=== PATIENT | female | born 1950 | race Caucasian/White ===

== ENCOUNTER 2017-01-09 15:19 | Emergency (ER) | payer MEDICARE ==
[2017-01-09 16:21] VITALS: BP 180/92; PULSE 99; O2SAT 98
--- NOTE | 2017-01-09 16:57 | ERPHSYRPT ---
- History of Present Illness Time Seen by Provider: 01/09/17 16:53 Source: patient Patient Subjective Stated Complaint: pt states she has ahd a headche for 3 days. pt c/o nausea. Triage Nursing Assessment: pt, pink, warm, dry. pt ambulated into ER without difficulty. pupils perrl. Physician History: The patient is a 66-year-old female who complains of a headache for 3 days with nausea. The headache began on the left side behind the eyeball and has progressed to a generalized headache. She has had similar headaches in the past. She states a "shot" has helped her in the past. Her past medical history is significant for diabetes, hypertension, high cholesterol, and GERD. Timing/Duration: day(s) (3) Quality: sharpness Head Pain Location: global Severity of Pain-Max: moderate Severity of Pain-Current: moderate Recent Head Trauma: occasional headaches Modifying Factors: Improves With: exposure to light Associated Symptoms: nausea/vomiting, sensitive to light Previous symptoms: same symptoms as today Allergies/Adverse Reactions: Penicillins Allergy (Verified 01/09/17 16:21) Home Medications: Aspirin 81 mg PO DAILY 02/04/15 [History] Insulin Detemir [Levemir] 36 unit SQ DAILY 02/04/15 [History] Linagliptin [Tradjenta] 5 mg PO DAILY 02/04/15 [History] PANTOPRAZOLE 40 mg Tablet [Protonix 40MG Tablet] 40 mg PO BID 02/04/15 [ History] Rosuvastatin Calcium [Crestor] 20 mg PO HS 02/04/15 [History] Topiramate [Topamax] 100 mg PO DAILY 02/04/15 [History] Amlodipine Besylate 5 mg [Norvasc 5 mg] 2.5 mg PO DAILY 01/09/17 [History] Clonazepam 0.5 mg [Klonopin 0.5 MG] 0.5 mg PO HS 01/09/17 [History] Exenatide [Byetta] 2 mg SQ UD 01/09/17 [History] Insulin Aspart [NovoLOG Insulin] 4 units SQ BREAKFAST 01/09/17 [History] Insulin Aspart [NovoLOG Insulin] 5 units SQ DINNER 01/09/17 [History] Insulin Aspart [NovoLOG Insulin] 6 units SQ LUNCH 01/09/17 [History] Linaclotide [Linzess] 290 mcg PO DAILY 01/09/17 [History] Sertraline HCl 200 mg PO DAILY 01/09/17 [History] Hx Tetanus, Diphtheria Vaccination/Date Given: Yes (up to date) Hx Influenza Vaccination/Date Given: Yes Hx Pneumococcal Vaccination/Date Given: Yes Immunizations Up to Date: Yes - Review of Systems Constitutional: No Fever, No Chills Eyes: Photophobia Ears, Nose, & Throat: No Symptoms Respiratory: No Cough, No Dyspnea Cardiac: No Chest Pain, No Edema, No Syncope Abdominal/Gastrointestinal: Nausea Genitourinary Symptoms: No Dysuria Musculoskeletal: No Back Pain, No Neck Pain Skin: No Rash Neurological: No Dizziness, No Focal Weakness, No Sensory Changes Psychological: No Symptoms Endocrine: No Symptoms Hematologic/Lymphatic: No Symptoms Immunological/Allergic: No Symptoms All Other Systems: Reviewed and Negative - Past Medical History Pertinent Past Medical History: Yes Neurological History: Migraines ENT History: No Pertinent History Cardiac History: Coronary Artery Disease, Hypertension Respiratory History: No Pertinent History Endocrine Medical History: Diabetes Type II Musculoskeletal History: Arthritis GI Medical History: Ulcer History: Renal Disease Psycho-Social History: No Pertinent History Female Reproductive Disorders: No Pertinent History Other Medical History: STENT PLACEMENT 12/31 - Past Surgical History Past Surgical History: Yes Neuro Surgical History: No Pertinent History Cardiac: Cardiac Catheterization, Cardiac Stent Respiratory: No Pertinent History Gastrointestinal: Appendectomy, Cholecystectomy, Hernia Repair Genitourinary: No Pertinent History Musculoskeletal: No Pertinent History Female Surgical History: Hysterectomy Other Surgical History: dialysis fistula - Social History Smoking Status: Never smoker Exposure to second hand smoke: No Drug Use: none Patient Lives Alone: No - Nursing Vital Signs Nursing Vital Signs: Initial Vital Signs Temperature 99.0 F Temperature Source Oral Pulse Rate 99 Respiratory Rate 20 Blood Pressure [Right Arm] 180/92 Pain Intensity 8 - Physical Exam General Appearance: moderate distress Eye Exam: photophobia Ears, Nose, Throat Exam: normal ENT inspection, moist mucous membranes Neck Exam: normal inspection, supple, full range of motion, No meningismus Respiratory Exam: normal breath sounds, lungs clear Cardiovascular Exam: regular rate/rhythm, normal heart sounds Gastrointestinal/Abdominal Exam: soft, No tenderness, No distention Back Exam: normal inspection, normal range of motion Extremity Exam: normal inspection Mental Status Exam: alert, oriented x 3, 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 Exam: normal speech, PERRL, No facial droop Coordination/Gait Exam: normal cerebellar function Motor/Sensory Exam: no motor deficit, no sensory deficit Skin Exam: normal color, warm, dry, No rash SpO2 Interpretation: normal SpO2: 98 Oxygen Delivery: Room Air - Progress Progress: improved Counseled pt/family regarding: diagnosis - Departure Time of Disposition: 17:00 Departure Disposition: Home Clinical Impression: Headache Condition: Stable Critical Care Time: No Instructions: Headache Additional Instructions: You have a headache that was treated in the ER with Toradol 60 mg and Phenergan 50 mg by IM injection. Follow-up with your primary medical doctor if the condition does not improve by tomorrow.
[2017-01-09] MEDS ORDERED: TORAdol 30 mg Injection IM ONE (17:02)
[2017-01-09] MEDS ORDERED: Phenergan 25 MG INJ IM ONE (17:02)
[2017-01-09] MEDS ORDERED: TORAdol 30 mg Injection ONE (17:06)
[2017-01-09] MEDS ORDERED: Phenergan 25 MG INJ ONE ×2 (17:06→17:15)
== END 2017-01-09 17:30 | disposition home or self-care (01) ==
LOC: ED 15:19
DX: R51 Headache (principal); R11.2 Nausea with vomiting, unspecified
CPT/HCPCS: 96372; 99284; J1885; J2550

== ENCOUNTER 2017-04-01 06:40 | Emergency (ER) | payer MEDICARE ==
[2017-04-01] MEDS ORDERED: TORAdol 30 mg Injection IM ONE (07:26)
[2017-04-01] MEDS ORDERED: Phenergan 25 MG INJ IM ONE (07:26)
--- NOTE | 2017-04-01 07:26 | ERPHSYRPT ---
- History of Present Illness Time Seen by Provider: 04/01/17 07:07 Source: patient Exam Limitations: no limitations Patient Subjective Stated Complaint: pt states she has had a migraine for 2 days and woke up today with increased pain in her head and weakness. states pain is on lt side of head and neck Triage Nursing Assessment: pt alert and oriented, answers questions approp. pt transfer from wheelchair to stretcher with assist of 1, unsteady. respirations nonlabored with lungs cta. pupils equal and reactive. camp director equal. bilat lower ext strength equal. no facial droop noted. Physician History: The patient is a 66-year-old female with her complaining of a typical headache for 2-3 days. Today she woke up with dizziness and unsteadiness upon standing. This is new for her and headaches. She is nauseated. Light bothers her. Her past medical history is significant for migraine headaches, diabetes, hypertension, high cholesterol, GERD, renal insufficiency, and cardiac catheter. Timing/Duration: day(s) (2) Quality: aching Head Pain Location: parietal (left) Severity of Pain-Max: moderate Severity of Pain-Current: moderate Recent Head Trauma: frequent headaches, chronic headaches Modifying Factors: Improves With: exposure to light Associated Symptoms: dizziness Previous symptoms: different symptoms Allergies/Adverse Reactions: Penicillins Allergy (Verified 04/01/17 06:58) Home Medications: Aspirin 81 mg PO DAILY 02/04/15 [History] Linagliptin [Tradjenta] 5 mg PO DAILY 02/04/15 [History] PANTOPRAZOLE 40 mg Tablet [Protonix 40MG Tablet] 40 mg PO BID 02/04/15 [ History] Rosuvastatin Calcium [Crestor] 20 mg PO HS 02/04/15 [History] Topiramate [Topamax] 400 mg PO HS 02/04/15 [History] Amlodipine Besylate 5 mg [Norvasc 5 mg] 2.5 mg PO DAILY 01/09/17 [History] Insulin Aspart [NovoLOG Insulin] 5 units SQ BREAKFAST 01/09/17 [History] Insulin Aspart [NovoLOG Insulin] 7 units SQ DINNER 01/09/17 [History] Insulin Aspart [NovoLOG Insulin] 7 units SQ LUNCH 01/09/17 [History] Sertraline HCl 200 mg PO HS 01/09/17 [History] Bydureon 2 mg SQ WEEKLY 04/01/17 [History] Insulin Detemir [Levemir] 37 unit SQ DAILY 04/01/17 [History] Isosorbide Mononitrate 30 mg [Imdur 30 MG] 30 mg PO DAILY 04/01/17 [History ] Metoprolol Succinate 100 mg [Toprol Xl 100 MG] 100 mg PO DAILY 04/01/17 [ History] Zolpidem Tartrate [Ambien] 10 mg PO HS 04/01/17 [History] Hx Tetanus, Diphtheria Vaccination/Date Given: Yes (up to date) Hx Influenza Vaccination/Date Given: Yes Hx Pneumococcal Vaccination/Date Given: Yes Immunizations Up to Date: Yes - Review of Systems Constitutional: No Fever, No Chills Eyes: Photophobia Ears, Nose, & Throat: No Symptoms Respiratory: No Cough, No Dyspnea Cardiac: No Chest Pain, No Edema, No Syncope Abdominal/Gastrointestinal: No Abdominal Pain, No Nausea, No Vomiting, No Diarrhea Genitourinary Symptoms: No Dysuria Musculoskeletal: No Symptoms Skin: No Symptoms, No Rash Neurological: Dizziness, No Focal Weakness, No Sensory Changes Psychological: No Symptoms Endocrine: No Symptoms Hematologic/Lymphatic: No Symptoms Immunological/Allergic: No Symptoms All Other Systems: Reviewed and Negative - Past Medical History Pertinent Past Medical History: Yes Neurological History: Migraines ENT History: No Pertinent History Cardiac History: Coronary Artery Disease, Hypertension Respiratory History: No Pertinent History Endocrine Medical History: Diabetes Type II Musculoskeletal History: Arthritis GI Medical History: Ulcer History: Renal Disease Psycho-Social History: No Pertinent History Female Reproductive Disorders: No Pertinent History Other Medical History: STENT PLACEMENT 12/31 - Past Surgical History Past Surgical History: Yes Neuro Surgical History: No Pertinent History Cardiac: Cardiac Catheterization, Cardiac Stent Respiratory: No Pertinent History Gastrointestinal: Appendectomy, Cholecystectomy, Hernia Repair Genitourinary: No Pertinent History Musculoskeletal: No Pertinent History Female Surgical History: Hysterectomy Other Surgical History: dialysis fistula - Social History Smoking Status: Never smoker Exposure to second hand smoke: No Drug Use: none Patient Lives Alone: No - Nursing Vital Signs Nursing Vital Signs: Initial Vital Signs Temperature 97.7 F 04/01/17 06:47 Pulse Rate 95 H 04/01/17 06:47 Respiratory Rate 20 04/01/17 06:47 Blood Pressure 141/71 04/01/17 06:47 O2 Sat by Pulse Oximetry 100 04/01/17 06:47 Pain Scale Pain Intensity 6 - Physical Exam General Appearance: no apparent distress Eye Exam: PERRL/EOMI Ears, Nose, Throat Exam: normal ENT inspection, moist mucous membranes, other Neck Exam: normal inspection, supple, full range of motion, No meningismus Respiratory Exam: normal breath sounds, lungs clear Cardiovascular Exam: regular rate/rhythm, normal heart sounds Gastrointestinal/Abdominal Exam: soft, No tenderness, No distention Back Exam: normal inspection, normal range of motion Extremity Exam: normal inspection Mental Status Exam: alert, oriented x 3, 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 Exam: normal speech, PERRL, tongue midline, No abnormal speech, No facial droop, No hearing deficit (R), No hearing deficit (L), No tongue deviation to R , No tongue deviation to L Coordination/Gait Exam: normal cerebellar function Motor/Sensory Exam: no motor deficit, no sensory deficit Skin Exam: normal color, warm, dry, No rash SpO2 Interpretation: normal (the daycare body woke up ) SpO2: 100 Oxygen Delivery: Room Air - CT Exams Head CT Interpretation: Negative (per DR Sosa) Ordered Tests: Active Orders 24 hr Category Date Time Status HEAD WITHOUT CONTRAST [CT] Stat Exams 04/01/17 07:26 Completed Medication Summary Discontinued Medications Generic Name Dose Route Start Last Admin Trade Name Alexisq PRN Reason Stop Dose Admin Ketorolac Tromethamine 60 mg 04/01/17 07:26 04/01/17 08:13 Toradol 30 Mg Injection IM 04/01/17 07:27 Not Given STAT ONE Ketorolac Tromethamine 30 mg 04/01/17 07:59 04/01/17 08:09 Toradol 30 Mg Injection IV 04/01/17 08:00 30 mg STAT ONE Administration Ketorolac Tromethamine Confirm 04/01/17 08:04 Toradol 30 Mg Injection Administered 04/01/17 08:05 Dose 30 mg .ROUTE .STK-MED ONE Promethazine HCl 50 mg 04/01/17 07:26 04/01/17 08:13 Phenergan 25 Mg Inj IM 04/01/17 07:27 Not Given STAT ONE Promethazine HCl 25 mg 04/01/17 07:59 04/01/17 08:07 Phenergan 25 Mg Inj IV 04/01/17 08:00 25 mg STAT ONE Administration Promethazine HCl Confirm 04/01/17 08:04 Phenergan 25 Mg Inj Administered 04/01/17 08:05 Dose 25 mg .ROUTE .STK-MED ONE - Progress Progress: improved Progress Note: 04/01/17 08:57 After Toradol 30 mg and Phenergan 25 mg IV, the patient was feeling better regarding her headache. However moving from the supine to the upright position once again caused dizziness. 04/01/17 09:42 Physical therapy arrives to ER and performs the Rui maneuver with moderate success. The patient to be discharged and follow-up with physical therapy for further treatment. Blood Culture(s) Obtained: No Antibiotics given: No Counseled pt/family regarding: diagnosis, rad results - Departure Time of Disposition: 08:58 Departure Disposition: Home Clinical Impression: BPV (benign positional vertigo), Headache Condition: Stable Critical Care Time: No Referrals: ARSENIO OWENS [Primary Care Provider] - Additional Instructions: You had a headache that was treated with Toradol 30 mg and Phenergan 25 mg IV in the ER. You also had a beneign paroxysmal positional vertigo that was treated at physical therapy with the Rui maneuver. Follow-up with physical therapy. Take meclizine 25 mg every 8 hours as needed for dizziness. Prescriptions: Meclizine HCl 25 mg [Antivert 25 mg] 25 mg PO Q8H PRN PRN #10 tablet PRN Reason: Nausea
[2017-04-01] MEDS ORDERED: TORAdol 30 mg Injection IV ONE (07:59)
[2017-04-01] MEDS ORDERED: Phenergan 25 MG INJ IV ONE (07:59)
[2017-04-01] MEDS ORDERED: Phenergan 25 MG INJ ONE (08:04)
[2017-04-01] MEDS ORDERED: TORAdol 30 mg Injection ONE (08:04)
--- NOTE | 2017-04-01 08:39 | XRAY ---
Indication: Headache and dizziness. Multiple contiguous axial images obtained through the head without contrast. Comparison: September 16, 2015. Study slightly degraded by motion artifact. Again grossly normal appearing brain parenchyma and ventricles. Bony calvarium intact again with mild hyperostosis frontalis interna. Visualized paranasal sinuses and mastoid air cells are clear. Impression: Stable negative CT head without contrast exam. CT DI 95.42
[2017-04-01 10:02] VITALS: BP 129/59; PULSE 96; O2SAT 97
== END 2017-04-01 10:01 | disposition home or self-care (01) ==
LOC: ED 06:40
DX: H81.10 Benign paroxysmal vertigo, unspecified ear (principal); R11.0 Nausea; E11.9 Type 2 diabetes mellitus without complications; I10 Essential (primary) hypertension; E78.00 Pure hypercholesterolemia, unspecified; K21.9 Gastro-esophageal reflux disease without esophagitis; R51 Headache
CPT/HCPCS: 36000; 70450; 96374; 96375; 99284; J1642; J1885; J2550

== ENCOUNTER 2017-04-16 19:55 | Emergency (ER) | payer MEDICARE ==
--- NOTE | 2017-04-16 20:33 | ERPHSYRPT ---
- History of Present Illness Time Seen by Provider: 04/16/17 20:18 Source: patient Exam Limitations: no limitations Patient Subjective Stated Complaint: pt states her blood sugar at home was 40 approx 30 min prior to arrival. she drank some milk and tried to eat a cracker but continued to be dizzy and shaky. Triage Nursing Assessment: pt alert and oriented, answers questions approp. skin pink warm and dry. respirations nonlabored with lungs cta. pt transfer from wheelchair to stretcher without assist. steady gait noted. pupils equal and reactive. bilat upper and lower ext strength strong and equal. dialysis fistula to lt upper arm with bruit and thrill noted. Physician History: ABOUT 1 HOUR AGO PT BECAME SHAKY AND DIZZY, CHECKED HER BLOOD GLUCOSE AND IT WAS 40. PT STATES SHE FORGOT TO EAT SO SHE ATE SOME CRACKERS AND MILK. PT DENIES CHEST PAIN, SHORTNESS OF AIR, FEVER, ABDOMINAL PAIN; ADMITS TO HER TYPICAL LEFT SIDED MIGRAINE HEADACHE FOR THE PAST 3 WEEKS FOR WHICH SHE TAKES TYLENOL NEEDED. PT HAD A CT-HEAD ON 04/01/17 AT [facility] WITH IMPRESSION OF A STABLE NEGATIVE CT HEAD WITHOUT CONTRAST. ACCUCHECK IN ER TODAY IS 78. Allergies/Adverse Reactions: Penicillins Allergy (Verified 04/16/17 20:11) Home Medications: Aspirin 81 mg PO DAILY 02/04/15 [History] Linagliptin [Tradjenta] 5 mg PO DAILY 02/04/15 [History] PANTOPRAZOLE 40 mg Tablet [Protonix 40MG Tablet] 40 mg PO BID 02/04/15 [ History] Rosuvastatin Calcium [Crestor] 20 mg PO HS 02/04/15 [History] Topiramate [Topamax] 400 mg PO HS 02/04/15 [History] Amlodipine Besylate 5 mg [Norvasc 5 mg] 2.5 mg PO DAILY 01/09/17 [History] Insulin Aspart [NovoLOG Insulin] 5 units SQ BREAKFAST 01/09/17 [History] Insulin Aspart [NovoLOG Insulin] 7 units SQ DINNER 01/09/17 [History] Insulin Aspart [NovoLOG Insulin] 7 units SQ LUNCH 01/09/17 [History] Sertraline HCl 200 mg PO HS 01/09/17 [History] Bydureon 2 mg SQ WEEKLY 04/01/17 [History] Insulin Detemir [Levemir] 37 unit SQ DAILY 04/01/17 [History] Isosorbide Mononitrate 30 mg [Imdur 30 MG] 30 mg PO DAILY 04/01/17 [History ] Metoprolol Succinate 100 mg [Toprol Xl 100 MG] 100 mg PO DAILY 04/01/17 [ History] Zolpidem Tartrate [Ambien] 10 mg PO HS 04/01/17 [History] Hx Tetanus, Diphtheria Vaccination/Date Given: Yes (up to date) Hx Influenza Vaccination/Date Given: Yes Hx Pneumococcal Vaccination/Date Given: Yes Immunizations Up to Date: Yes - Review of Systems Constitutional: No Fever Respiratory: No Dyspnea Cardiac: No Chest Pain Abdominal/Gastrointestinal: No Abdominal Pain Neurological: Dizziness, Headache, Other (SHAKY) All Other Systems: Reviewed and Negative - Past Medical History Pertinent Past Medical History: Yes Neurological History: Migraines ENT History: No Pertinent History Cardiac History: Coronary Artery Disease, High Cholesterol, Hypertension Respiratory History: No Pertinent History Endocrine Medical History: Diabetes Type II Musculoskeletal History: Arthritis GI Medical History: Ulcer History: Renal Disease Psycho-Social History: No Pertinent History Female Reproductive Disorders: No Pertinent History Other Medical History: Stage 4 kidney disease. - Past Surgical History Past Surgical History: Yes Neuro Surgical History: No Pertinent History Cardiac: Cardiac Catheterization, Cardiac Stent Respiratory: No Pertinent History Gastrointestinal: Appendectomy, Cholecystectomy, Hernia Repair Genitourinary: No Pertinent History Musculoskeletal: No Pertinent History Female Surgical History: Hysterectomy Other Surgical History: dialysis fistula - Social History Smoking Status: Never smoker Exposure to second hand smoke: No Drug Use: none Patient Lives Alone: No - Nursing Vital Signs Nursing Vital Signs: Initial Vital Signs Temperature 97.9 F 04/16/17 20:00 Pulse Rate 97 H 04/16/17 20:00 Respiratory Rate 22 04/16/17 20:00 Blood Pressure 164/76 04/16/17 20:00 O2 Sat by Pulse Oximetry 96 04/16/17 20:00 Pain Scale Pain Intensity 7 - Physical Exam General Appearance: no apparent distress, alert Eye Exam: PERRL/EOMI Ears, Nose, Throat Exam: TMs normal, pharynx normal, moist mucous membranes Neck Exam: normal inspection Respiratory Exam: lungs clear Cardiovascular Exam: normal heart sounds Gastrointestinal/Abdomen Exam: soft, normal bowel sounds Back Exam: normal range of motion Extremity Exam: normal range of motion Neurologic Exam: alert, cooperative, sensation nml, No motor deficits Skin Exam: warm, dry SpO2 Interpretation: normal SpO2: 96 Oxygen Delivery: Room Air - Course Nursing assessment & vital signs reviewed: Yes Ordered Tests: Active Orders 24 hr Category Date Time Status AMYLASE Stat Lab 04/16/17 20:53 Completed CBC W DIFF Stat Lab 04/16/17 20:53 Completed CMP Stat Lab 04/16/17 20:53 Completed LIPASE Stat Lab 04/16/17 20:53 Completed MAGNESIUM Stat Lab 04/16/17 20:53 Completed UA W/ MICROSCOPIC Stat Lab 04/16/17 20:44 Results Lab/Rad Data: Laboratory Result Diagrams 04/16/17 20:53 04/16/17 20:53 Laboratory Results 04/16/17 04/16/17 04/16/17 Range/Units 20:53 20:53 20:44 WBC 7.7 (4.0-10.5) K/mm3 RBC 3.85 L (4.1-5.4) M/mm3 Hgb 11.0 L (12.0-16.0) gm/dl Hct 35.4 (35-47) % MCV 91.9 (78-100) fl MCH 28.5 (26-32) pg MCHC 31.1 L (32-36) g/dl RDW 15.1 H (11.5-14.0) % Plt Count 312 (150-450) K/mm3 MPV 10.2 H (6-9.5) fl Gran % 61.0 (36.0-66.0) % Lymphocytes % 24.4 (24.0-44.0) % Monocytes % 7.6 (0.0-12.0) % Eosinophils % 6.3 H (0.00-5.0) % Basophils % 0.7 (0.0-0.4) % Basophils # 0.05 (0-0.4) Sodium 139 (136-145) mEq/L Potassium 3.5 (3.5-5.1) mEq/L Chloride 107 (98-107) mEq/L Carbon Dioxide 21.4 (21-32) mEq/L Anion Gap 13.6 (5-15) MEQ/L BUN 37 H (9-20) mg/dL Creatinine 2.25 H (0.55-1.30) mg/dl Estimated GFR 23 ML/MIN Glucose 77 (70-110) MG/DL Calcium 8.9 (8.5-10.1) mg/dL Magnesium 1.7 L (1.8-2.4) mg/dL Total Bilirubin 0.10 L (0.2-1.0) mg/dL AST 19 (15-37) U/L ALT 19 (12-78) U/L Alkaline Phosphatase 73 (46-116) U/L Serum Total Protein 7.5 (6.4-8.2) gm/dL Albumin 3.8 (3.4-5.0) g/dL Amylase 79 (25-115) U/L Lipase 402 H (73-393) U/L Ur Collection Type VOID Urine Color YELLOW (YELLOW) Urine Appearance SLIGHTLY CLOUDY (CLEAR) Urine pH 5.0 (5-6) Ur Specific Marshall 1.020 (1.005-1.025) Urine Protein NEGATIVE (Negative) Urine Ketones NEGATIVE (NEGATIVE) Urine Blood NEGATIVE (0-5) Xander/ul Urine Nitrite NEGATIVE (NEGATIVE) Urine Bilirubin NEGATIVE (NEGATIVE) Urine Urobilinogen NORMAL (0-1) mg/dL Ur Leukocyte Esterase TRACE (NEGATIVE) Urine Microscopic RBC 0-2 (0-2) /HPF Urine Microscopic WBC 2-5 (0-5) /HPF Ur Epithelial Cells MANY (FEW) /HPF Urine Bacteria MODERATE (NEGATIVE) /HPF Urine Glucose NEGATIVE (NEGATIVE) mg/dL Specimen Received 04/16/172039 - Departure Time of Disposition: 21:30 Departure Disposition: Home Clinical Impression: HYPOGLYCEMIA, UTI, MILD HYPOMAGNESEMIA Condition: Stable Critical Care Time: No Referrals: ARSENIO OWENS [Primary Care Provider] - Instructions: Hypoglycemia, Urinary Tract Infection (UTI) Additional Instructions: FOLLOW UP WITH PRIVATE DOCTOR TOMORROW. Prescriptions: Nitrofurantoin Macro 100 mg [Macrobid 100MG Capsule] 100 mg PO BID #20 capsule
[2017-04-16 20:57] LABS: BASOPHIL % 0.7 % (0.0-0.4); Eosinophil % 6.3 % (0.00-5.0); Lymphocytes % 24.4 % (24.0-44.0); Mean Cell Volume 91.9 fl (78-100); Mean Platelet Volume 10.2 fl (6-9.5); Monocytes % 7.6 % (0.0-12.0); Platelet Count 312 K/mm3 (150-450); Red Blood Count 3.85 M/mm3 (4.1-5.4); Red Cell Distribution Width 15.1 % (11.5-14.0); White Blood Count 7.7 K/mm3 (4.0-10.5)
[2017-04-16 20:58] LABS: Mean Corpuscular Hemoglobin 28.5 pg (26-32)
[2017-04-16 21:03] LABS: Bilirubin NEGATIVE (NEGATIVE); Blood NEGATIVE Ery/ul (0-5); COMPLETE URINE MICROSCOPIC? YES; Collection Type VOID; Glucose NEGATIVE (NEGATIVE); Leukocyte Esterase TRACE (NEGATIVE)
[2017-04-16 21:04] LABS: Bacteria MODERATE /HPF (NEGATIVE); Epithelial Cells MANY /HPF (FEW)
[2017-04-16 21:18] LABS: ALBUMIN 3.8 g/dL (3.4-5.0); ANION GAP 13.6 MEQ/L (5-15); BILIRUBIN,TOTAL 0.1 mg/dL (0.2-1.0); Carbon Dioxide 21.4 mEq/L (21-32); MAGNESIUM 1.7 mg/dL (1.8-2.4); Potassium 3.5 mEq/L (3.5-5.1); Total Protein 7.5 gm/dL (6.4-8.2)
[2017-04-16] MEDS ORDERED: Macrobid 100MG Capsule PO ONE (21:28)
[2017-04-16 21:33] LABS: ADD URINE CULTURE? YES (NO)
[2017-04-16] MEDS ORDERED: MAG-OX 400 ONE (21:42)
[2017-04-16] MEDS ORDERED: Macrobid 100MG Capsule ONE (21:42)
[2017-04-16] MEDS ORDERED: MAG-OX 400 PO SCH (22:00)
[2017-04-16 22:04] VITALS: BP 133/70; PULSE 75; O2SAT 100
== END 2017-04-16 22:04 | disposition home or self-care (01) ==
LOC: ED 19:55
DX: E11.649 Type 2 diabetes mellitus with hypoglycemia without coma (principal); N39.0 Urinary tract infection, site not specified; E83.42 Hypomagnesemia; Z79.4 Long term (current) use of insulin; Z79.899 Other long term (current) drug therapy; I25.10 Atherosclerotic heart disease of native coronary artery without angina pectoris; E78.00 Pure hypercholesterolemia, unspecified; I10 Essential (primary) hypertension
CPT/HCPCS: 36415; 80053; 81000; 82150; 82962; 83690; 83735; 85025; 87086; 99283; 99284; J1642; A9270-GY

== ENCOUNTER 2017-08-29 07:17 | Emergency (ER) | payer MEDICARE ==
[2017-08-29] MEDS ORDERED: Phenergan 25 MG INJ IM ONE (07:39)
[2017-08-29] MEDS ORDERED: DEMEROL 50 MG IM ONE (07:39)
[2017-08-29] MEDS ORDERED: DEMEROL 50 MG ONE (07:44)
[2017-08-29] MEDS ORDERED: Phenergan 25 MG INJ ONE (07:44)
--- NOTE | 2017-08-29 07:46 | ERPHSYRPT ---
- History of Present Illness Time Seen by Provider: 08/29/17 07:34 Source: patient Exam Limitations: no limitations Patient Subjective Stated Complaint: pt reports headache since saturday-nause but no vomiting-denies numbness or tingling-pt has hx of migraines et states it feels like that Triage Nursing Assessment: pt pink warm et dry-ambulatory to ed-moving all extremities with ease-answering questions correctly Physician History: patient with history of migraine presents with headache for past 2 days. States headaches similar to previous migraine, with bilateral temporal throbbing sensation, constant and associated with photophobia, nausea, dizziness and blurred vision. Patient was recently started on new medicines for migraine. Patient denies any focal or facial weakness, no altered mental status and no difficulty with her speech. It has been quite some since her last visit to the ED for migraine treatments. Denies any recent illnesses, no cough, congestion, sore throat or earaches Timing/Duration: day(s) (2) Quality: throbbing Head Pain Location: frontal, temporal Severity of Pain-Max: moderate Severity of Pain-Current: moderate Recent Head Trauma: chronic headaches Modifying Factors: Improves With: exposure to light (worsens), noise (worsens) Associated Symptoms: light-headedness, nausea/vomiting, vision changes, No confusion, No dizziness, No fever/chills, No flushing, No loss of consciousness , No seizures, No sinus infection, No speech problems, No trouble walking Previous symptoms: same symptoms as today Allergies/Adverse Reactions: Penicillins Allergy (Verified 08/29/17 07:29) Home Medications: Aspirin 81 mg PO DAILY 02/04/15 [History] Linagliptin [Tradjenta] 5 mg PO DAILY 02/04/15 [History] PANTOPRAZOLE 40 mg Tablet [Protonix 40MG Tablet] 40 mg PO BID 02/04/15 [ History] Rosuvastatin Calcium [Crestor] 20 mg PO HS 02/04/15 [History] Topiramate [Topamax] 400 mg PO HS 02/04/15 [History] Amlodipine Besylate 5 mg [Norvasc 5 mg] 2.5 mg PO DAILY 01/09/17 [History] Insulin Aspart [NovoLOG Insulin] 5 units SQ BREAKFAST 01/09/17 [History] Insulin Aspart [NovoLOG Insulin] 7 units SQ DINNER 01/09/17 [History] Insulin Aspart [NovoLOG Insulin] 7 units SQ LUNCH 01/09/17 [History] Sertraline HCl 200 mg PO HS 01/09/17 [History] Insulin Detemir [Levemir] 37 unit SQ DAILY 04/01/17 [History] Isosorbide Mononitrate 30 mg [Imdur 30 MG] 30 mg PO DAILY 04/01/17 [History ] Metoprolol Succinate 100 mg [Toprol Xl 100 MG] 100 mg PO DAILY 04/01/17 [ History] Zolpidem Tartrate [Ambien] 10 mg PO HS 04/01/17 [History] Hx Tetanus, Diphtheria Vaccination/Date Given: Yes Hx Influenza Vaccination/Date Given: Yes Hx Pneumococcal Vaccination/Date Given: Yes Immunizations Up to Date: Yes - Review of Systems Constitutional: No Fever, No Chills Eyes: No Symptoms Ears, Nose, & Throat: No Symptoms Respiratory: No Cough, No Dyspnea Cardiac: No Chest Pain, No Edema, No Syncope Abdominal/Gastrointestinal: No Abdominal Pain, No Nausea, No Vomiting, No Diarrhea Genitourinary Symptoms: No Dysuria Musculoskeletal: No Back Pain, No Neck Pain Skin: No Rash Neurological: Headache, No Dizziness, No Focal Weakness, No Lethargy, No Sensory Changes Psychological: No Symptoms Endocrine: No Symptoms All Other Systems: Reviewed and Negative - Past Medical History Pertinent Past Medical History: Yes Neurological History: Migraines ENT History: No Pertinent History Cardiac History: Coronary Artery Disease, High Cholesterol, Hypertension Respiratory History: No Pertinent History Endocrine Medical History: Diabetes Type II Musculoskeletal History: Arthritis GI Medical History: Ulcer History: Renal Disease Psycho-Social History: No Pertinent History Female Reproductive Disorders: No Pertinent History Other Medical History: Stage 4 kidney disease. - Past Surgical History Past Surgical History: Yes Neuro Surgical History: No Pertinent History Cardiac: Cardiac Catheterization, Cardiac Stent Respiratory: No Pertinent History Gastrointestinal: Appendectomy, Cholecystectomy, Hernia Repair Genitourinary: No Pertinent History Musculoskeletal: No Pertinent History Female Surgical History: Hysterectomy Other Surgical History: dialysis fistula - Social History Smoking Status: Never smoker Exposure to second hand smoke: No Drug Use: none Patient Lives Alone: No - Female History Hx Now: No - Nursing Vital Signs Nursing Vital Signs: Initial Vital Signs Temperature 98.1 F 08/29/17 07:27 Pulse Rate 89 08/29/17 07:27 Respiratory Rate 20 08/29/17 07:27 Blood Pressure 172/72 08/29/17 07:27 O2 Sat by Pulse Oximetry 96 08/29/17 07:27 Pain Scale Pain Intensity 7 - Physical Exam General Appearance: no apparent distress Eye Exam: PERRL/EOMI Ears, Nose, Throat Exam: normal ENT inspection, moist mucous membranes Neck Exam: normal inspection, supple, full range of motion, No meningismus Respiratory Exam: normal breath sounds, lungs clear Cardiovascular Exam: regular rate/rhythm, normal heart sounds Gastrointestinal/Abdominal Exam: soft, No tenderness, No distention Back Exam: normal inspection, normal range of motion Mental Status Exam: alert, oriented x 3, 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 Exam: normal speech, PERRL, No facial droop Coordination/Gait Exam: normal cerebellar function Motor/Sensory Exam: no motor deficit, no sensory deficit Skin Exam: normal color, warm, dry, No rash SpO2: 96 Oxygen Delivery: Room Air Ordered Tests: Medication Summary Discontinued Medications Generic Name Dose Route Start Last Admin Trade Name Freq PRN Reason Stop Dose Admin Meperidine HCl 50 mg 08/29/17 07:39 Demerol 50 Mg IM 08/29/17 07:40 STAT ONE Promethazine HCl 25 mg 08/29/17 07:39 Phenergan 25 Mg Inj IM 08/29/17 07:40 STAT ONE - Progress Progress: improved Progress Note: 08/29/17 07:45 patient was given Demero and Phenergan for symptoms Counseled pt/family regarding: diagnosis - Departure Time of Disposition: 07:46 Departure Disposition: Home Clinical Impression: Migraine Condition: Stable Critical Care Time: No Referrals: ARSENIO OWENS [Primary Care Provider] - Additional Instructions: Rx: Compazine. Return for worse headaches, vomiting, dizziness, weakness or any problem Prescriptions: Prochlorperazine Maleate 10 mg [Compazine 10 mg] 10 mg PO Q6-8HPRN PRN #12 tablet PRN Reason: Nausea/Vomiting
[2017-08-29 08:49] VITALS: BP 160/80; PULSE 82; O2SAT 95
== END 2017-08-29 08:30 | disposition home or self-care (01) ==
LOC: ED 07:17
DX: R51 Headache (principal); R11.2 Nausea with vomiting, unspecified; Z79.899 Other long term (current) drug therapy; Z79.4 Long term (current) use of insulin; E11.9 Type 2 diabetes mellitus without complications; I25.10 Atherosclerotic heart disease of native coronary artery without angina pectoris; I10 Essential (primary) hypertension; E78.00 Pure hypercholesterolemia, unspecified
CPT/HCPCS: 96372; 99284; J2175; J2550

== ENCOUNTER 2017-09-12 16:49 | Emergency (ER) | payer MEDICARE ==
--- NOTE | 2017-09-12 17:51 | ERPHSYRPT ---
- History of Present Illness Time Seen by Provider: 09/12/17 17:46 Source: patient Exam Limitations: no limitations Patient Subjective Stated Complaint: pt here for headache, nonproductive cough, post nasal drip since saturday,pt has sanders often. Triage Nursing Assessment: pt alert,resp labored with excertion, skin w/d pink, no edema noted Timing/Duration: day(s) (3 days) Severity: moderate Associated Symptoms: nausea, No vomiting, No abdominal pain, No shortness of breath, No heartburn, No diaphoresis, No cough, No chills, No chest pain, No fever, No headaches, No loss of appetite, No malaise, No rash, No syncope, No seizure, No weakness Allergies/Adverse Reactions: Penicillins Allergy (Verified 09/12/17 17:46) Home Medications: Aspirin 81 mg PO DAILY 02/04/15 [History] Linagliptin [Tradjenta] 5 mg PO DAILY 02/04/15 [History] PANTOPRAZOLE 40 mg Tablet [Protonix 40MG Tablet] 40 mg PO BID 02/04/15 [ History] Rosuvastatin Calcium [Crestor] 20 mg PO HS 02/04/15 [History] Topiramate [Topamax] 400 mg PO HS 02/04/15 [History] Amlodipine Besylate 5 mg [Norvasc 5 mg] 2.5 mg PO DAILY 01/09/17 [History] Insulin Aspart [NovoLOG Insulin] 5 units SQ BREAKFAST 01/09/17 [History] Insulin Aspart [NovoLOG Insulin] 7 units SQ DINNER 01/09/17 [History] Insulin Aspart [NovoLOG Insulin] 7 units SQ LUNCH 01/09/17 [History] Sertraline HCl 200 mg PO HS 01/09/17 [History] Insulin Detemir [Levemir] 37 unit SQ DAILY 04/01/17 [History] Isosorbide Mononitrate 30 mg [Imdur 30 MG] 30 mg PO DAILY 04/01/17 [History ] Metoprolol Succinate 100 mg [Toprol Xl 100 MG] 100 mg PO DAILY 04/01/17 [ History] Zolpidem Tartrate [Ambien] 10 mg PO HS 08/14/17 [History] Hx Tetanus, Diphtheria Vaccination/Date Given: Yes Hx Influenza Vaccination/Date Given: Yes Hx Pneumococcal Vaccination/Date Given: Yes Immunizations Up to Date: Yes - Review of Systems Constitutional: No Fever, No Chills Eyes: No Symptoms, No Eye Pain, No Eye Redness, No Itchy, No Photophobia, No Tearing, No Double Vision, No Foreign Body Sensation Ears, Nose, & Throat: No Symptoms, No Ear Pain, No Ear Discharge, No Hearing Changes, No Tinnitus, No Nose Pain, No Nose Congestion, No Nose Discharge, No Sinus Drainage, No Epistaxis, No Mouth Pain, No Mouth Swelling, No Loose Teeth, No Throat Pain, No Throat Swelling, No Hoarse, No Painful Swallowing, No Snoring , No Stridor Respiratory: No Cough, No Dyspnea Cardiac: No Chest Pain, No Edema, No Syncope Abdominal/Gastrointestinal: Nausea, No Abdominal Pain, No Vomiting, No Diarrhea , No Constipation, No Hematemesis, No Hematochezia, No Melena, No Dysphagia, No Appetite Changes Genitourinary Symptoms: No Dysuria Musculoskeletal: No Back Pain, No Neck Pain Skin: No Rash Neurological: Headache, No Dizziness, No Focal Weakness, No Gait Changes, No Irritability, No Lethargy, No Paralysis, No Parasthesia, No Seizure, No Sensory Changes, No Speech Changes, No Tics, No Vertigo Psychological: No Symptoms Endocrine: No Symptoms All Other Systems: Reviewed and Negative - Past Medical History Pertinent Past Medical History: Yes Neurological History: Migraines ENT History: No Pertinent History Cardiac History: Coronary Artery Disease, High Cholesterol, Hypertension Respiratory History: No Pertinent History Endocrine Medical History: Diabetes Type II Musculoskeletal History: Arthritis GI Medical History: Ulcer History: Renal Disease Psycho-Social History: No Pertinent History Female Reproductive Disorders: No Pertinent History Other Medical History: Stage 4 kidney disease. - Past Surgical History Past Surgical History: Yes Neuro Surgical History: No Pertinent History Cardiac: Cardiac Catheterization, Cardiac Stent Respiratory: No Pertinent History Gastrointestinal: Appendectomy, Cholecystectomy, Hernia Repair Genitourinary: No Pertinent History Musculoskeletal: No Pertinent History Female Surgical History: Hysterectomy Other Surgical History: dialysis fistula - Social History Smoking Status: Never smoker Exposure to second hand smoke: No Drug Use: none Patient Lives Alone: No - Female History Hx Last Menstrual Period: post Hx Now: No - Nursing Vital Signs Nursing Vital Signs: Initial Vital Signs Temperature 100.4 F 09/12/17 17:34 Pulse Rate 93 H 09/12/17 17:34 Respiratory Rate 16 09/12/17 17:34 Blood Pressure 153/65 09/12/17 17:34 O2 Sat by Pulse Oximetry 95 09/12/17 17:34 Pain Scale Pain Intensity 3 - Physical Exam General Appearance: mild distress, alert Eye Exam: PERRL/EOMI, eyes nml inspection Ears, Nose, Throat Exam: normal ENT inspection Neck Exam: normal inspection, non-tender, supple, full range of motion Respiratory Exam: normal breath sounds, lungs clear, No respiratory distress Cardiovascular Exam: regular rate/rhythm, normal heart sounds, normal peripheral pulses Gastrointestinal/Abdomen Exam: soft, normal bowel sounds, No tenderness, No mass Back Exam: normal inspection, normal range of motion, No CVA tenderness, No vertebral tenderness Extremity Exam: normal inspection, normal range of motion, pelvis stable Neurologic Exam: alert, oriented x 3, cooperative, normal mood/affect, nml cerebellar function, nml station & gait, sensation nml, No motor deficits Skin Exam: normal color, warm, dry, No rash Lymphatic Exam: No adenopathy SpO2 Interpretation: normal (95%) SpO2: 95 Oxygen Delivery: Room Air - Course Nursing assessment & vital signs reviewed: Yes Ordered Tests: Active Orders 24 hr Category Date Time Status IV Insertion STAT Care 09/12/17 17:46 Active Medication Summary Discontinued Medications Generic Name Dose Route Start Last Admin Trade Name Freq PRN Reason Stop Dose Admin Sodium Chloride 1,000 mls @ 999 mls/hr 09/12/17 17:46 09/12/17 19:37 Sodium Chloride 0.9% 1000 Ml IV 09/12/17 18:46 999 mls/hr .Q1H1M STA Administration Sodium Chloride Confirm 09/12/17 18:26 Sodium Chloride 0.9% 1000 Ml Administered 09/12/17 18:27 Dose 1,000 mls @ ud .ROUTE .STK-MED ONE Morphine Sulfate 4 mg 09/12/17 17:46 09/12/17 19:36 Morphine Sulfate 4 Mg Inj IV 09/12/17 17:47 4 mg STAT ONE Administration Morphine Sulfate Confirm 09/12/17 18:26 Morphine Sulfate 4 Mg Inj Administered 09/12/17 18:27 Dose 4 mg .ROUTE .STK-MED ONE Promethazine HCl 12.5 mg 09/12/17 17:46 09/12/17 19:37 Phenergan 25 Mg Inj IV 09/12/17 17:47 12.5 mg STAT ONE Administration Promethazine HCl Confirm 09/12/17 18:26 Phenergan 25 Mg Inj Administered 09/12/17 18:27 Dose 25 mg .ROUTE .STK-MED ONE - Progress Progress: improved Progress Note: 09/12/17 17:49 66-year-old white female with history of migraines arrives with complaint of headache top of her head symptoms going on for 3 days she's been nauseous no fevers. She does state that she feels like she is dehydrated. Past medical history includes migraines, coronary artery disease, hyperlipidemia , high blood pressure, diabetes, arthritis, ulcers, renal disease, stage IV if she him stage 5 kidney disease, Past surgical history includes cardiac catheter cardiac stent, appendectomy, cholecystectomy, hernia repair, hysterectomy, diabetes fistula 09/12/17 20:38 The patient is feeling markedly better after iv normal saline, morphine, phenergan, Will send home with prescription for phenergan. - Departure Time of Disposition: 20:40 Departure Disposition: Home Clinical Impression: Migraine Qualifiers: Migraine type: unspecified Status migrainosus presence: without status migrainosus Intractability: not intractable Qualified Code(s): G43.909 - Migraine, unspecified, not intractable, without status migrainosus Condition: Fair Critical Care Time: No Referrals: ARSENIO OWNES [Primary Care Provider] - Additional Instructions: Return home, rest in a dark , quiet room Follow up with your family doctor. Return for acute distress or for severe symptoms. Phenergan 25 mg orally every 4-6 hours as needed for nausea and vomiting Return for acute distress or for severe symptoms Prescriptions: Promethazine HCl 25 mg [Phenergan 25 mg] 25 mg PO Q4-6HPRN PRN #12 tablet PRN Reason: nausea and vomiting
[2017-09-12] MEDS ORDERED: Phenergan 25 MG INJ ONE (18:26)
[2017-09-12] MEDS ORDERED: Sodium Chloride 0.9% 1000 ML 1,000 ML ONE (18:26)
[2017-09-12] MEDS ORDERED: MORPHINE SULFATE 4 MG INJ ONE (18:26)
[2017-09-12] MEDS: MORPHINE SULFATE 4 MG INJ IV ONE (19:36)
[2017-09-12] MEDS: Sodium Chloride 0.9% 1000 ML 1,000 ML IV STA (19:37)
[2017-09-12] MEDS: Phenergan 25 MG INJ IV ONE (19:37)
[2017-09-12 20:17] VITALS: BP 135/61; PULSE 80
[2017-09-12 20:43] VITALS: O2SAT 95
== END 2017-09-12 21:09 | disposition home or self-care (01) ==
LOC: ED 16:49
DX: G43.909 Migraine, unspecified, not intractable, without status migrainosus (principal); I25.10 Atherosclerotic heart disease of native coronary artery without angina pectoris; E78.5 Hyperlipidemia, unspecified; I10 Essential (primary) hypertension; E11.9 Type 2 diabetes mellitus without complications; Z79.4 Long term (current) use of insulin; M19.90 Unspecified osteoarthritis, unspecified site; I12.9 Hypertensive chronic kidney disease with stage 1 through stage 4 chronic kidney disease, or unspecified chronic kidney disease; N18.4 Chronic kidney disease, stage 4 (severe); Z79.899 Other long term (current) drug therapy
CPT/HCPCS: 36000; 36591; 96360; 96374; 99283; 99284; J2270; J2550

== ENCOUNTER 2017-12-23 17:44 | Observation (INO) | payer MEDICARE ==
[2017-12-23] MEDS ORDERED: Sodium Chloride 0.9% 1000 ML 1,000 ML ONE (17:50)
--- NOTE | 2017-12-23 17:55 | ERPHSYRPT ---
- History of Present Illness Source: patient, EMS Hx Tetanus, Diphtheria Vaccination/Date Given: Yes Hx Influenza Vaccination/Date Given: Yes Hx Pneumococcal Vaccination/Date Given: Yes <EDWARD PASCUAL - Last Filed: 12/23/17 19:00> <MARIUSZ FOX - Last Filed: 12/23/17 20:11> - History of Present Illness Time Seen by Provider: 12/23/17 17:51 Physician History: mild to mod off and on cramps of the abdomen today and syncope with neck pain, o /w no injury, speech fluent, no fever, nausea (EDWARD PASCUAL) The patient is a 67-year-old female with her complaining that she was in the kitchen and doesn't remember passing out that her found her on the floor. This happened at about 5:30 PM. He states that he did not see her fall but heard the thump when she hit the floor. She had lost consciousness for about 30 seconds. She was nauseated and did not vomit. She denies chest pain. Her past medical history is significant for CAD, cardiac stents, probable SC, diabetes, hypertension, renal failure, and obesity. Her doctors in [place] that she wants to stay at this hospital tonight. She has no local doctor. (MARIUSZ FOX) Allergies/Adverse Reactions: Penicillins Allergy (Verified 12/23/17 18:24) Home Medications: Aspirin 81 mg PO DAILY 02/04/15 [History] Linagliptin [Tradjenta] 5 mg PO DAILY 02/04/15 [History] PANTOPRAZOLE 40 mg Tablet [Protonix 40MG Tablet] 40 mg PO BID 02/04/15 [ History] Rosuvastatin Calcium [Crestor] 20 mg PO HS 02/04/15 [History] Topiramate [Topamax] 400 mg PO HS 02/04/15 [History] Amlodipine Besylate 5 mg [Norvasc 5 mg] 2.5 mg PO DAILY 01/09/17 [History] Insulin Aspart [NovoLOG Insulin] 5 units SQ BREAKFAST 01/09/17 [History] Insulin Aspart [NovoLOG Insulin] 7 units SQ DINNER 01/09/17 [History] Insulin Aspart [NovoLOG Insulin] 7 units SQ LUNCH 01/09/17 [History] Sertraline HCl 200 mg PO HS 01/09/17 [History] Insulin Detemir [Levemir] 37 unit SQ DAILY 04/01/17 [History] Isosorbide Mononitrate 30 mg [Imdur 30 MG] 30 mg PO DAILY 04/01/17 [History ] Metoprolol Succinate 100 mg [Toprol Xl 100 MG] 100 mg PO DAILY 04/01/17 [ History] Zolpidem Tartrate [Ambien] 10 mg PO HS 04/01/17 [History] - Past Medical History Pertinent Past Medical History: Yes Neurological History: Migraines ENT History: No Pertinent History Cardiac History: Coronary Artery Disease, High Cholesterol, Hypertension Respiratory History: No Pertinent History Endocrine Medical History: Diabetes Type II Musculoskeletal History: Arthritis GI Medical History: Ulcer History: Renal Disease Psycho-Social History: No Pertinent History Female Reproductive Disorders: No Pertinent History Other Medical History: Stage 4 kidney disease. - Past Surgical History Past Surgical History: Yes Neuro Surgical History: No Pertinent History Cardiac: Cardiac Catheterization, Cardiac Stent Respiratory: No Pertinent History Gastrointestinal: Appendectomy, Cholecystectomy, Hernia Repair Genitourinary: No Pertinent History Musculoskeletal: No Pertinent History Female Surgical History: Hysterectomy Other Surgical History: dialysis fistula - Social History Smoking Status: Never smoker Exposure to second hand smoke: No Drug Use: none Patient Lives Alone: No <EDWARD PASCUAL - Last Filed: 12/23/17 19:00> - Review of Systems Constitutional: No Fever Eyes: No Eye Redness Ears, Nose, & Throat: No Mouth Pain Respiratory: No Dyspnea Cardiac: Syncope, No Chest Pain Abdominal/Gastrointestinal: Abdominal Pain, No Vomiting Genitourinary Symptoms: No Dysuria Musculoskeletal: Neck Pain, No Back Pain Skin: No Rash Neurological: No Dizziness, No Headache <EDWARD PASCUAL - Last Filed: 12/23/17 19:00> Physical Exam - Dg Coma Scale Best Eye Response ([place]): (4) open spontaneously Best Verbal Response ([place]): (5) oriented Best Motor Response ([place]): (6) obeys commands Dg Total: 15 - Physical Exam General Appearance: no apparent distress Eye Exam: bilateral eye: PERRL Ears, Nose, Throat Exam: moist mucous membranes Neck Exam: supple, No midline tenderness Respiratory: normal breath sounds, No chest tenderness Cardiovascular: regular rate/rhythm, normal heart sounds Gastrointestinal: soft, tenderness, No rebound Back Exam: No vertebral tenderness Extremity Exam: normal inspection, pelvis stable Mental Status: alert, oriented x 3, 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 Exam: normal speech, PERRL Motor/Sensory: no motor deficit, no sensory deficit Skin Exam: normal color, warm, dry <EDWARD PASCUAL - Last Filed: 12/23/17 19:00> - Nursing Vital Signs Nursing Vital Signs: Initial Vital Signs Pulse Rate 68 12/23/17 17:55 Respiratory Rate 16 12/23/17 17:55 Blood Pressure 65/37 12/23/17 17:55 Pain Scale Pain Intensity 5 - Course EKG Interpreted by Me: RATE, Sinus Rhythm, NORMAL AXIS, NORMAL INTERVALS, Other (old inferior SC; no change compared to EKG of 02/04/15.) - CT Exams Cervical Spine CT Interpretation: Negative (no acute findings per Dr Churchill), Tele-radiologist Report, No Fracture Head CT Interpretation: Negative (stable head CT per Dr Churchill), Tele-radiologist Report Abdomen/Pelvis CT Interpretation: Negative (Neg CT abd/pelvis per Dr Churchill), Tele-radiologist Report <MARIUSZ FOX - Last Filed: 12/23/17 20:11> Ordered Tests: Active Orders 24 hr Category Date Time Status Accucheck STAT Care 12/23/17 17:48 Active Art Dealer STAT Care 12/23/17 17:49 Active EKG-ER Only STAT Care 12/23/17 17:48 Active IV Insertion STAT Care 12/23/17 17:48 Active ABDOMEN AND PELVIS W/0 CONTRAS [CT] Stat Exams 12/23/17 17:55 Taken CERVICAL SPINE WO CONTRAST [CT] Stat Exams 12/23/17 17:49 Taken HEAD WITHOUT CONTRAST [CT] Stat Exams 12/23/17 17:49 Taken CBC W DIFF Stat Lab 12/23/17 18:06 Completed CMP Stat Lab 12/23/17 18:06 Completed Lactic Acid Stat Lab 12/23/17 18:04 Ordered PROTIME WITH INR Stat Lab 12/23/17 18:06 Completed TROPONIN Q3H Lab 12/23/17 18:06 Completed TROPONIN Q3H Lab 12/23/17 21:00 Ordered Medication Summary Discontinued Medications Generic Name Dose Route Start Last Admin Trade Name Freq PRN Reason Stop Dose Admin Sodium Chloride Confirm 12/23/17 17:50 Sodium Chloride 0.9% 1000 Ml Administered 12/23/17 17:51 Dose 1,000 mls @ ud .ROUTE .STK-MED ONE Sodium Chloride 1,000 mls @ 999 mls/hr 12/23/17 18:04 12/23/17 18:12 Sodium Chloride 0.9% 1000 Ml IV 12/23/17 19:04 999 mls/hr .Q1H1M STA Administration Morphine Sulfate 2 mg 12/23/17 17:58 Morphine Sulfate 2 Mg Inj IV 12/23/17 17:59 STAT ONE Ondansetron HCl 4 mg 12/23/17 17:58 12/23/17 18:12 Zofran 4 Mg/2 Ml Vial IV 12/23/17 17:59 4 mg STAT ONE Administration Ondansetron HCl Confirm 12/23/17 18:08 Zofran 4 Mg/2 Ml Vial Administered 12/23/17 18:09 Dose 4 mg .ROUTE .STK-MED ONE Lab/Rad Data: Laboratory Result Diagrams 12/23/17 18:06 12/23/17 18:06 Laboratory Results 12/23/17 12/23/17 12/23/17 Range/Units 18:06 18:06 18:06 WBC (4.0-10.5) K/mm3 RBC (4.1-5.4) M/mm3 Hgb (12.0-16.0) gm/dl Hct (35-47) % MCV (78-100) fl MCH (26-32) pg MCHC (32-36) g/dl RDW (11.5-14.0) % Plt Count (150-450) K/mm3 MPV (6-9.5) fl Gran % (36.0-66.0) % Eos # (Auto) (0-0.5) Absolute Lymphs (auto) (1.0-4.6) Absolute Monos (auto) (0.0-1.3) Lymphocytes % (24.0-44.0) % Monocytes % (0.0-12.0) % Eosinophils % (0.00-5.0) % Basophils % (0.0-0.4) % Absolute Granulocytes (1.4-6.9) Basophils # (0-0.4) PT 12.0 (9.95-12.35) SECONDS INR 1.03 (0.8-3.0) Sodium 133 L (137-145) mmol/L Potassium 4.9 (3.5-5.1) mmol/L Chloride 104 (98-107) mmol/L Carbon Dioxide 20 L (22-30) mmol/L Anion Gap 14.3 (5-15) MEQ/L BUN 42 H (7-17) mg/dL Creatinine 1.98 H (0.52-1.04) mg/dL Estimated GFR 26.6 ML/MIN Glucose 160 H (74-106) mg/dL Calcium 9.7 (8.4-10.2) mg/dL Total Bilirubin 0.20 (0.2-1.3) mg/dL AST 28 (14-36) U/L ALT 28 (0-35) U/L Alkaline Phosphatase 84 (38-126) U/L Troponin I < 0.012 (0.000-0.034) ng/mL Serum Total Protein 6.8 (6.3-8.2) g/dL Albumin 3.9 (3.5-5.0) g/dL 12/23/17 Range/Units 18:06 WBC 8.9 (4.0-10.5) K/mm3 RBC 4.13 (4.1-5.4) M/mm3 Hgb 11.6 L (12.0-16.0) gm/dl Hct 36.0 (35-47) % MCV 87.2 (78-100) fl MCH 28.0 (26-32) pg MCHC 32.2 (32-36) g/dl RDW 14.9 H (11.5-14.0) % Plt Count 342 (150-450) K/mm3 MPV 10.2 H (6-9.5) fl Gran % 71.2 H (36.0-66.0) % Eos # (Auto) 0.36 (0-0.5) Absolute Lymphs (auto) 1.30 (1.0-4.6) Absolute Monos (auto) 0.83 (0.0-1.3) Lymphocytes % 14.7 L (24.0-44.0) % Monocytes % 9.4 (0.0-12.0) % Eosinophils % 4.1 (0.00-5.0) % Basophils % 0.6 (0.0-0.4) % Absolute Granulocytes 6.33 (1.4-6.9) Basophils # 0.05 (0-0.4) PT (9.95-12.35) SECONDS INR (0.8-3.0) Sodium (137-145) mmol/L Potassium (3.5-5.1) mmol/L Chloride (98-107) mmol/L Carbon Dioxide (22-30) mmol/L Anion Gap (5-15) MEQ/L BUN (7-17) mg/dL Creatinine (0.52-1.04) mg/dL Estimated GFR ML/MIN Glucose (74-106) mg/dL Calcium (8.4-10.2) mg/dL Total Bilirubin (0.2-1.3) mg/dL AST (14-36) U/L ALT (0-35) U/L Alkaline Phosphatase (38-126) U/L Troponin I (0.000-0.034) ng/mL Serum Total Protein (6.3-8.2) g/dL Albumin (3.5-5.0) g/dL <EDWARD PASCUAL - Last Filed: 12/23/17 19:00> - Progress Progress: improved, re-examined Discussed with : Ayala Will see patient in: hospital (observation) Counseled pt/family regarding: lab results, diagnosis, need for follow-up, rad results <MARIUSZ FOX - Last Filed: 12/23/17 20:11> - Progress Progress Note: 12/23/17 19:[address] Fox at 19:00 (EDWARD PASCUAL) Pt care discussed and care accepted from Dr Pascual at 19:00. 12/23/17 19:44 12/23/17 20:03 After 1 L of normal saline by IV, the patient still feels lightheaded and unsteady when she stands up. Her last blood pressure was 140 systolic. (MARIUSZ FOX) - Departure Time of Disposition: 19:00 <EDWARD PASCUAL - Last Filed: 12/23/17 19:00> - Departure Departure Disposition: Observation (per Dr Emerson Lagos) Critical Care Time: No <FOX,MARIUSZ S. - Last Filed: 12/23/17 20:11> - Departure Clinical Impression: Syncope and collapse, Hypotension Condition: Stable Referrals: ARSENIO OWENS [Primary Care Provider] -
[2017-12-23] MEDS ORDERED: Zofran 4 MG/2 ML VIAL IV ONE (17:58)
[2017-12-23] MEDS ORDERED: MORPHINE SULFATE 2 MG INJ IV ONE (17:58)
[2017-12-23] MEDS ORDERED: Sodium Chloride 0.9% 1000 ML 1,000 ML IV STA (18:04)
[2017-12-23] MEDS ORDERED: Zofran 4 MG/2 ML VIAL ONE (18:08)
[2017-12-23 18:11] LABS: BASOPHIL % 0.6 % (0.0-0.4); Basophil (Absolute #) 0.05 (0-0.4); Eosinophil % 4.1 % (0.00-5.0); Eosinophil (Absolute #) 0.36 (0-0.5); Granulocyte Absolute (ANC) 6.33 (1.4-6.9); Granulocytes % 71.2 % (36.0-66.0); Hemoglobin 11.6 gm/dl (12.0-16.0); Lymphocytes % 14.7 % (24.0-44.0); Mean Cell Volume 87.2 fl (78-100); Mean Corpuscular Hgb Concent. 32.2 g/dl (32-36); Mean Platelet Volume 10.2 fl (6-9.5); Monocyte (Absolute #) 0.83 (0.0-1.3); Monocytes % 9.4 % (0.0-12.0); Platelet Count 342 K/mm3 (150-450); Red Blood Count 4.13 M/mm3 (4.1-5.4); Red Cell Distribution Width 14.9 % (11.5-14.0); White Blood Count 8.9 K/mm3 (4.0-10.5)
[2017-12-23 18:24] LABS: INR 1.03 (0.8-3.0)
[2017-12-23 18:30] LABS: ALBUMIN 3.9 g/dL (3.5-5.0); ANION GAP 14.3 MEQ/L (5-15); BILIRUBIN,TOTAL 0.2 mg/dL (0.2-1.3); Calcium 9.7 mg/dL (8.4-10.2); Creatinine 1 1.98 mg/dL (0.52-1.04); Potassium 4.9 mmol/L (3.5-5.1); Total Protein 6.8 g/dL (6.3-8.2)
[2017-12-23] MEDS ORDERED: MORPHINE SULFATE 2 MG INJ ONE (19:58)
[2017-12-23] MEDS ORDERED: Zofran 4 MG/2 ML VIAL IV PRN (20:59)
[2017-12-23] MEDS ORDERED: TYLENOL 325 MG PO PRN (20:59)
[2017-12-23] MEDS: Sodium Chloride 0.9% 1000 ML 1,000 ML IV SCH (22:00)
[2017-12-23] MEDS ORDERED: LIPITOR 40MG PO ONE (23:00)
[2017-12-23] MEDS ORDERED: Protonix 40MG Tablet PO ONE (23:00)
[2017-12-23] MEDS ORDERED: ZOLOFT 50 MG TABLET PO ONE (23:00)
[2017-12-23] MEDS ORDERED: ZOCOR 20MG ONE (23:02)
[2017-12-24 05:31] LABS: BASOPHIL % 0.6 % (0.0-0.4); Basophil (Absolute #) 0.05 (0-0.4); Eosinophil % 2.7 % (0.00-5.0); Eosinophil (Absolute #) 0.22 (0-0.5); Granulocyte Absolute (ANC) 5.96 (1.4-6.9); Granulocytes % 73.4 % (36.0-66.0); Hematocrit 33.8 % (35-47); Hemoglobin 10.8 gm/dl (12.0-16.0); Lymphocyte (Absolute #) 1.24 (1.0-4.6); Lymphocytes % 15.3 % (24.0-44.0); Mean Cell Volume 88.3 fl (78-100); Monocyte (Absolute #) 0.65 (0.0-1.3); Platelet Count 252 K/mm3 (150-450); Red Blood Count 3.83 M/mm3 (4.1-5.4); Red Cell Distribution Width 14.9 % (11.5-14.0); White Blood Count 8.1 K/mm3 (4.0-10.5)
[2017-12-24] MEDS ORDERED: Phenergan 25 MG INJ IV ONE (05:33)
[2017-12-24 05:36] LABS: Mean Corpuscular Hemoglobin 28.1 pg (26-32)
[2017-12-24 05:55] LABS: ANION GAP 12.5 MEQ/L (5-15); Calcium 9.3 mg/dL (8.4-10.2); Creatinine 1 1.73 mg/dL (0.52-1.04); Potassium 4.5 mmol/L (3.5-5.1)
[2017-12-24] MEDS ORDERED: ZOCOR 20MG PO ONE (06:45)
[2017-12-24] MEDS: Sodium Chloride 0.9% 1000 ML 1,000 ML IV SCH (06:53)
[2017-12-24] MEDS ORDERED: MORPHINE SULFATE 2 MG INJ IV PRN (08:41)
--- NOTE | 2017-12-24 08:42 | XRAY ---
Indication: Headache. Multiple contiguous axial images obtained through the head without contrast. Comparison: April 01, 2017. Stable normal appearing brain parenchyma, ventricles, and bony calvarium again with incidental hyperostosis frontalis interna. Visualized paranasal sinuses and mastoid air cells are clear. Impression: Stable negative CT head without contrast exam. CT DI 67.22
--- NOTE | 2017-12-24 08:43 | PCM.HP ---
History of Present Illness - Chief Complaint Chief Complaint: syncope Date: 12/24/17 History of Present Illness: is a 67 year old female. PCP: Dr. Cabrera in [facility] Dr. Sandhu; Duplex Trimmer in [place] She reports she has a chronic history of recurrent syncope and has been following with cardiolgy for other reasons with a recent stress test that she was told was ok. She does not recall any specific events but was feeling light headed and weak prior to the episode and was found down by her but she doesn't recall falling. She was brought to ED where her bp was very low. She felt much better after iv fluids and has no presyncope now. She has no chest pain or shortness of breath. She has no history of seizures and no witnessed seizure like activity. - Review of Systems Constitutional: No Fever, No Chills Eyes: No Symptoms Ears, Nose, & Throat: No Symptoms Respiratory: No Cough, No Short Of Breath Cardiac: No Chest Pain, No Edema, No Syncope Abdominal/Gastrointestinal: No Abdominal Pain, No Nausea, No Vomiting, No Diarrhea Genitourinary Symptoms: No Dysuria Musculoskeletal: No Back Pain, No Neck Pain Skin: No Rash Neurological: No Dizziness, No Focal Weakness, No Sensory Changes Psychological: No Symptoms Endocrine: No Symptoms Hematologic/Lymphatic: No Symptoms Immunological/Allergic: No Symptoms Medications & Allergies Home Medications: Home Medication List Aspirin 81 mg PO DAILY 02/04/15 [History Confirmed 12/23/17] PANTOPRAZOLE 40 mg Tablet [Protonix 40MG Tablet] 40 mg PO BID 02/04/15 [ History Confirmed 12/23/17] Insulin Aspart [NovoLOG Insulin] 6 units SQ BREAKFAST 01/09/17 [History Confirmed 12/23/17] Insulin Aspart [NovoLOG Insulin] 7 units SQ DINNER 01/09/17 [History Confirmed 12/23/17] Insulin Aspart [NovoLOG Insulin] 7 units SQ LUNCH 01/09/17 [History Confirmed 12/23/17] Sertraline HCl 200 mg PO HS 01/09/17 [History Confirmed 12/23/17] Insulin Detemir [Levemir] 40 unit SQ DAILY 04/01/17 [History Confirmed 12/23/17] Isosorbide Mononitrate 30 mg [Imdur 30 MG] 30 mg PO DAILY 04/01/17 [ History Confirmed 12/23/17] Metoprolol Succinate 100 mg [Toprol Xl 100 MG] 100 mg PO DAILY 04/01/17 [ History Confirmed 12/23/17] Atorvastatin Calcium [Lipitor 40Mg] 40 mg HS 12/23/17 [History Confirmed ] Polyethylene Glycol 3350 [Miralax] 17 gm DAILY PRN PRN 12/23/17 [History Confirmed 12/23/17] Allergies/Adverse Reactions: Allergies Allergy/AdvReac Type Severity Reaction Status Date / Time Penicillins Allergy Verified 12/23/17 18:24 - Past Medical History Past Medical History: Yes Neurological History: Migraines ENT History: No Pertinent History Cardiac History: Coronary Artery Disease, High Cholesterol, Hypertension Respiratory History: No Pertinent History Endocrine Medical History: Diabetes Type II Musculoskelatal History: Arthritis GI Medical History: Ulcer History: Renal Disease Pyscho-Social History: No Pertinent History Reproductive Disorders: No Pertinent History Comment: Stage 4 kidney disease. - Female History Hx Last Menstrual Period: post Are you now?: No - Past Surgical History Past Surgical History: Yes Neuro Surgical History: No Pertinent History Cardiac History: Cardiac Catheterization, Cardiac Stent Respiratory Surgery: No Pertinent History GI Surgical History: Appendectomy, Cholecystectomy, Hernia Repair Genitourinary Surgical Hx: No Pertinent History Musculskeletal Surgical Hx: No Pertinent History Female Surgical History: Hysterectomy Other Surgical History: dialysis fistula ANNY, port right chest - Social History Smoking Status: Never smoker Exposure to second hand smoke: Yes Alcohol: None Drug Use: none - Physical Exam Vital Signs: Vital Signs - 24 hr Temp Pulse Resp BP Pulse Ox 12/24/17 07:34 98.7 F 80 20 187/73 97 12/24/17 03:49 99.2 F 83 20 161/69 97 12/24/17 00:00 98.3 F 83 16 151/67 97 12/23/17 21:14 98.6 F 80 18 121/59 95 12/23/17 19:54 77 18 142/77 98 12/23/17 18:15 97.0 F 88 18 87/41 94 L 12/23/17 18:05 71 18 101/53 92 L 12/23/17 18:00 70 18 88/45 96 12/23/17 17:55 68 16 65/37 General Appearance: no apparent distress, alert, obese, other (av fistula with good thrill) Neurologic Exam: alert, oriented x 3, cooperative, normal mood/affect, nml cerebellar function, nml station & gait, sensation nml, No motor deficits Eye Exam: PERRL/EOMI, eyes nml inspection Ears, Nose, Throat Exam: normal ENT inspection, pharynx normal, moist mucous membranes Neck Exam: normal inspection, non-tender, supple, full range of motion Respiratory Exam: normal breath sounds, lungs clear, No respiratory distress Cardiovascular Exam: regular rate/rhythm, normal heart sounds, normal peripheral pulses Gastrointestinal/Abdomen Exam: soft, normal bowel sounds, No tenderness, No mass Back Exam: normal inspection, normal range of motion, No CVA tenderness, No vertebral tenderness Extremity Exam: normal inspection, normal range of motion, pelvis stable Skin Exam: normal color, warm, dry, No rash Lymphatic Exam: No adenopathy Results - Labs Lab/Micro Results: Accuchecks Date 12/24/17 Date 12/23/17 Time 07:08 Time 22:00 Accucheck Value: 110 Accucheck Value: 143 Lab Results-Last 24 Hours 12/23/17 12/24/17 12/24/17 Range/Units 21:43 05:15 05:15 WBC 8.1 (4.0-10.5) K/mm3 RBC 3.83 L (4.1-5.4) M/mm3 Hgb 10.8 L (12.0-16.0) gm/dl Hct 33.8 L (35-47) % MCV 88.3 (78-100) fl MCH 28.1 (26-32) pg MCHC 32.0 (32-36) g/dl RDW 14.9 H (11.5-14.0) % Plt Count 252 (150-450) K/mm3 MPV 10.0 H (6-9.5) fl Gran % 73.4 H (36.0-66.0) % Eos # (Auto) 0.22 (0-0.5) Absolute Lymphs (auto) 1.24 (1.0-4.6) Absolute Monos (auto) 0.65 (0.0-1.3) Lymphocytes % 15.3 L (24.0-44.0) % Monocytes % 8.0 (0.0-12.0) % Eosinophils % 2.7 (0.00-5.0) % Basophils % 0.6 (0.0-0.4) % Absolute Granulocytes 5.96 (1.4-6.9) Basophils # 0.05 (0-0.4) Sodium 135 L (137-145) mmol/L Potassium 4.5 (3.5-5.1) mmol/L Chloride 106 (98-107) mmol/L Carbon Dioxide 21 L (22-30) mmol/L Anion Gap 12.5 (5-15) MEQ/L BUN 34 H (7-17) mg/dL Creatinine 1.73 H (0.52-1.04) mg/dL Estimated GFR 31.1 ML/MIN Glucose 109 H (74-106) mg/dL Calcium 9.3 (8.4-10.2) mg/dL Troponin I 0.012 (0.000-0.034) ng/mL Accuchecks Date 12/24/17 Date 12/23/17 Time 07:08 Time 22:00 Accucheck Value: 110 Accucheck Value: 143 - Radiology Impressions Radiology Exams & Impressions: Radiology Procedures Category Date Time Status ECHO W/2D AND DOPPLER [US] Routine Exams 12/24/17 Ordered Assessment/Plan (1) Syncope and collapse Status: Acute Assessment & Plan: will check echocardiogram no events on telemetry ekg no change from 2014 troponins negative no seizure like activity her BP was very low on arrival and appeared clinically dehydrated per ED physician and she is much improved and bp improved after hydration no edema or sob and no rales will d/c her amlodipine and have close follow up with her ladle operator for consideration of event monitoring but it sounds like this may have already been done and pcp the echocardiogram results will not be back prior to her discharge and will plan for discharge later today after echocardiogram if continues to tolerate activity and no new events. Code(s): R55 - SYNCOPE AND COLLAPSE (2) Hypotension Status: Acute Code(s): I95.9 - HYPOTENSION, UNSPECIFIED (3) Diabetes mellitus Status: Chronic Qualifiers: Diabetes mellitus type: type 2 Diabetes mellitus assistant terminal manager insulin use: with assistant terminal manager use Diabetes mellitus complication detail: with other circulatory complications Code(s): E11.9 - TYPE 2 DIABETES MELLITUS WITHOUT COMPLICATIONS (4) Renal insufficiency Status: Chronic (5) Coronary arteriosclerosis Status: Chronic
--- NOTE | 2017-12-24 08:44 | XRAY ---
Indication: Cervical spine pain. Multiple contiguous axial images obtained through the cervical spine. Sagittal and coronal reformatted images obtained. Comparison: Cervical radiograph June 02, 2015. Axial images negative for acute fracture, suspicious bony lesions, or spinal canal stenosis. Stable mild C5-C6 degenerative endplate spurring. Mild/moderate multilevel bilateral degenerative facet hypertrophy. Sagittal and coronal reformatted images demonstrates normal alignment again with minimal C5-C6 disc space narrowing. No acute compression fracture, subluxation, or jumped facet. Normal appearing craniocervical junction. Visualized noncontrasted soft tissues demonstrates minimal bilateral carotid calcifications and partially visualized right central venous access catheter. Lung apices clear. CT head reported separately. Impression: Degenerative changes as detailed grossly unchanged. No new/acute findings. CT DI 120.32
--- NOTE | 2017-12-24 08:50 | XRAY ---
Indication: Left abdominal pain. AAA. Multiple contiguous axial images obtained through the abdomen and pelvis without contrast as ordered. Comparison: February 19, 2015. Lung bases again demonstrates minimal bibasilar fibrosis/scarring. No infiltrate or effusion. Heart is not enlarged. Noncontrasted stomach and bowel loops appear nonobstructed. Normal appendix. Again previous cholecystectomy and hysterectomy. No free fluid/air. Again minimal right renal atrophy. Remaining liver, pancreas, spleen, adrenal glands, kidneys, ureters, and bladder appear unremarkable for noncontrast exam. There remains mild scattered aortoiliac calcifications without AAA. Osseous structures intact again with minimal degenerative changes throughout the spine. Impression: Stable minimal right renal atrophy and scattered arteriosclerotic calcifications. No new or acute intra-abdominal/pelvic abnormalities on this noncontrast exam. CT DI 23.09
[2017-12-24] MEDS ORDERED: Miralax Powder 17GM PACKET PO PRN (09:27)
[2017-12-24] MEDS ORDERED: Protonix 40MG Tablet PO SCH (10:00)
[2017-12-24] MEDS ORDERED: NON-FORMULARY ITEM (Aspirin [Aspirin] 81 MG) PO SCH (10:00)
[2017-12-24] MEDS ORDERED: Lantus Insulin SQ SCH (10:00)
[2017-12-24] MEDS ORDERED: ECOTRIN 81 MG PO SCH (10:00)
[2017-12-24] MEDS ORDERED: Toprol Xl 100 MG PO SCH (10:00)
[2017-12-24] MEDS ORDERED: NON-FORMULARY ITEM (Insulin Detemir [Levemir] 40 UNIT) SQ SCH (10:00)
[2017-12-24] MEDS ORDERED: NovoLOG Insulin SQ SCH ×2 (12:00→18:00)
--- NOTE | 2017-12-24 15:55 | PCM.DCORD ---
- Discharge Discharge Date: 12/24/17 Disposition: Home, Self-Care Condition: Stable Prescriptions: Continue PANTOPRAZOLE 40 mg Tablet [Protonix 40MG Tablet] 40 mg PO BID Aspirin 81 mg PO DAILY Insulin Aspart [NovoLOG Insulin] 7 units SQ DINNER Insulin Aspart [NovoLOG Insulin] 7 units SQ LUNCH Insulin Aspart [NovoLOG Insulin] 6 units SQ BREAKFAST Sertraline HCl 200 mg PO HS Isosorbide Mononitrate 30 mg [Imdur 30 MG] 30 mg PO DAILY Metoprolol Succinate 100 mg [Toprol Xl 100 MG] 100 mg PO DAILY Insulin Detemir [Levemir] 40 unit SQ DAILY Atorvastatin Calcium [Lipitor 40Mg] 40 mg HS Polyethylene Glycol 3350 [Miralax] 17 gm DAILY PRN PRN PRN Reason: Constipation Discontinued Amlodipine Besylate 5 mg [Norvasc 5 mg] 5 mg PO DAILY Follow up with: YEIMY CORDOBA [NON-STAFF PHY W/O PRIVILEGES] - 1 Week
[2017-12-24 15:58] VITALS: BP 139/70; PULSE 92; O2SAT 94
[2017-12-24] MEDS ORDERED: ZOLOFT 50 MG TABLET PO SCH (22:00)
[2017-12-24] MEDS ORDERED: ZOCOR 20MG PO SCH (22:00)
[2017-12-24] MEDS ORDERED: LIPITOR 40MG PO SCH (22:00)
[2017-12-24] MEDS ORDERED: SERTRALINE HCL 200 MG PO SCH (22:00)
[2017-12-25] MEDS ORDERED: NovoLOG Insulin SQ SCH (08:00)
== END 2017-12-24 17:20 | disposition home or self-care (01) ==
LOC: ED 17:44 → MED SURG 20:57
PROVIDERS: ADMIT Family Medicine; ATTEND Family Medicine
DX: R55 Syncope and collapse (principal); I95.9 Hypotension, unspecified; E11.9 Type 2 diabetes mellitus without complications; Z79.4 Long term (current) use of insulin; I25.10 Atherosclerotic heart disease of native coronary artery without angina pectoris; I12.9 Hypertensive chronic kidney disease with stage 1 through stage 4 chronic kidney disease, or unspecified chronic kidney disease; N18.4 Chronic kidney disease, stage 4 (severe)
CPT/HCPCS: 36000; 36415; 70450; 72125; 74176; 80048; 80053; 82962; 83605; 84484; 85025; 85610; 93005; 93041; 93268; 93306; 96360; 96374; 96375; 99285; J1642; J2270; J2405; J2550; A9270-GY; G0378

== ENCOUNTER 2018-03-08 02:08 | Emergency (ER) | payer MEDICARE ==
[2018-03-08] MEDS ORDERED: SODIUM CHLORIDE 0.9% IV ONE (02:10)
[2018-03-08] MEDS ORDERED: EPINEPHRINE ABBOJECT 1 MG IV ONE (02:10)
[2018-03-08] MEDS ORDERED: Sodium Chloride 0.9% 1000 ML 1,000 ML IV ONE (02:10)
--- NOTE | 2018-03-08 02:23 | ERPHSYRPT ---
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 Patient was in her usual state of health, went to bed around 10:00 found to be unresponsive at around 1:25 AM patient was unresponsive, so CPR was started. Ambulance was called in. When emergency certified court/medical interpreter arrived at home. Patient was in asystole. CPR was started. Patient was shock twice with 300 J, as well as 2 epinephrines were given in route to the emergency room. Rhythm was restored for few minutes while in route to the emergency room. But when patient was in the emergency room. Patient was in asystole. CPR was continued to more epi given. During these course patient remained in asystole, family have decided to stop the CPR. Patient was declared at approximately 2:15 AM. Timing/Duration: today Aspirin Treatment Today: no aspirin today Allergies/Adverse Reactions: Penicillins Allergy (Verified 12/23/17 18:24) Home Medications: Aspirin 81 mg PO DAILY 02/04/15 [History] PANTOPRAZOLE 40 mg Tablet [Protonix 40MG Tablet] 40 mg PO BID 02/04/15 [ History] Insulin Aspart [NovoLOG Insulin] 6 units SQ BREAKFAST 01/09/17 [History] Insulin Aspart [NovoLOG Insulin] 7 units SQ DINNER 01/09/17 [History] Insulin Aspart [NovoLOG Insulin] 7 units SQ LUNCH 01/09/17 [History] Sertraline HCl 200 mg PO HS 01/09/17 [History] Insulin Detemir [Levemir] 40 unit SQ DAILY 04/01/17 [History] Isosorbide Mononitrate 30 mg [Imdur 30 MG] 30 mg PO DAILY 04/01/17 [History ] Metoprolol Succinate 100 mg [Toprol Xl 100 MG] 100 mg PO DAILY 04/01/17 [ History] Atorvastatin Calcium [Lipitor 40Mg] 40 mg HS 12/23/17 [History] Polyethylene Glycol 3350 [Miralax] 17 gm DAILY PRN PRN 12/23/17 [History] Hx Tetanus, Diphtheria Vaccination/Date Given: Yes Hx Influenza Vaccination/Date Given: Yes Hx Pneumococcal Vaccination/Date Given: Yes - Review of Systems All Other Systems: Unable due to condition - Past Medical History Pertinent Past Medical History: Yes Neurological History: Migraines ENT History: No Pertinent History Cardiac History: Coronary Artery Disease, High Cholesterol, Hypertension Respiratory History: No Pertinent History Endocrine Medical History: Diabetes Type II Musculoskeletal History: Arthritis GI Medical History: Ulcer History: Renal Disease Psycho-Social History: No Pertinent History Female Reproductive Disorders: No Pertinent History Other Medical History: Stage 4 kidney disease. - Past Surgical History Past Surgical History: Yes Neuro Surgical History: No Pertinent History Cardiac: Cardiac Catheterization, Cardiac Stent Respiratory: No Pertinent History Gastrointestinal: Appendectomy, Cholecystectomy, Hernia Repair Genitourinary: No Pertinent History Musculoskeletal: No Pertinent History Female Surgical History: Hysterectomy Other Surgical History: dialysis fistula ANNY, port right chest - Social History Smoking Status: Never smoker Exposure to second hand smoke: Yes Drug Use: none Patient Lives Alone: No - Physical Exam Oxygen Delivery: Ambu-Bag Comments: 03/08/18 02:23 Patient has no pulse, no respiration. Pupils are fixed and dilated. - Course Nursing assessment & vital signs reviewed: Yes Rhythm Strip: Asystole - Departure Time of Disposition: 02:25 Departure Disposition: Clinical Impression: Cardiac arrest due to underlying cardiac condition Condition: Critical Care Time: Yes Critical Care Time(excluding separately billable procedures): 30-74 minutes Referrals: [facility] [ACTIVE STAFF] -
[2018-03-08 03:15] VITALS: PULSE 0
== END 2018-03-08 04:45 | disposition expired ==
LOC: ED 02:08 → SUPCPDRO 02:08 → ED 04:45
DX: I46.2 Cardiac arrest due to underlying cardiac condition (principal); Z79.899 Other long term (current) drug therapy
CPT/HCPCS: 99283; J0171